=== PATIENT | female | born 1965 | race Caucasian/White ===

== ENCOUNTER 2018-04-26 14:30 | Emergency (ER) | payer OTHER ==
[2018-04-26] MEDS ORDERED: KETOROLAC 30 MG/ML INJ ONE (15:30)
[2018-04-26] MEDS ORDERED: NA CHLORIDE 0.9% 1,000 ML ONE (15:30)
[2018-04-26 15:47] LABS: Absolute Lymphocytes (CBC) 1.2 K/uL (0.7-4.9); Absolute Monocytes 0.6 K/uL (0.1-1.3); Absolute Neutrophil 6.9 K/uL (1.8-8.0); Basophils % 0.5 % (0-1.3); Hematocrit 41.6 % (36.0-45.0); Lymphocytes % 13.7 % (15.3-44.8); MCH 30.5 pg (27.0-35.0); MCV 87.8 fL (80-100); MPV 8.8 fL (7.6-11.3); Monocytes % 7.2 % (3.3-12.3); RBC Red Blood Cell Count 4.74 M/uL (3.86-4.86)
[2018-04-26 16:02] LABS: Albumin 3.9 g/dL (3.4-5.0); Bilirubin Direct 0.2 mg/dL (0-0.2); Bilirubin Total 0.5 mg/dL (0.2-1.0); Potassium 3.6 mmol/L (3.5-5.1); Protein, Total 7.6 g/dL (6.4-8.2)
[2018-04-26] MEDS ORDERED: PANTOPRAZOLE 40 MG INJ ONE (16:54)
--- NOTE | 2018-04-26 17:06 | ER ---
Nurse's Notes [facility] Name: Jessenia Kong Age: 52 yrs Sex: Female : 1965 Arrival Date: 04/26/2018 Time: 14:41 Bed 28 Private MD: None, None Diagnosis: Cholelithiasis Presentation: 04/26 14:45 Presenting complaint: Patient states: Lower abdominal pain for 2 days. Denies blood in aj stool. Transition of care: patient was not received from another setting of care. Onset of symptoms was April 24, 2018. Risk Assessment: Do you want to hurt yourself or someone else? Patient reports no desire to harm self or others. Initial Sepsis Screen: Does the patient meet any 2 criteria? No. Patient's initial sepsis screen is negative. Does the patient have a suspected source of infection? No. Patient's initial sepsis screen is negative. Care prior to arrival: None. 14:45 Method Of Arrival: Ambulatory 14:45 Acuity: MARYLU 3 aj Triage Assessment: 14:46 General: Appears in no apparent distress. comfortable, Behavior is calm, cooperative, aj appropriate for age. Pain: Complains of pain in right lower quadrant and left lower quadrant. Neuro: Level of Consciousness is awake, alert, obeys commands, Oriented to person, place, time, situation, Appropriate for age. Respiratory: Airway is patent Respiratory effort is even, unlabored, Respiratory pattern is regular, symmetrical. GI: Abdomen is flat, Reports upper abdominal pain. Derm: Skin is intact, is healthy with good turgor, Skin is pink, warm \T\ dry. normal. VENEER JOINER: 14:46 LMP N/A - Irregular menses aj Historical: - Allergies: 14:46 No Known Allergies; aj - Home Meds: 14:46 Low-Ogestrel (28) 0.3-30 mg-mcg Oral tab 1 tab once daily [Active]; aj - PMHx: 14:46 Fibroids; aj - PSHx: 14:46 None; aj - Immunization history:: Adult Immunizations up to date. - Social history:: Smoking status: Patient/guardian denies using tobacco. - Ebola Screening: : Patient negative for fever greater than or equal to 101.5 degrees Fahrenheit, and additional compatible Ebola Virus Disease symptoms Patient denies exposure to infectious person Patient denies travel to an Ebola-affected area in the 21 days before illness onset No symptoms or risks identified at this time. Screenin:32 Abuse screen: Denies threats or abuse. Denies injuries from another. Nutritional mg2 screening: No deficits noted. Tuberculosis screening: No symptoms or risk factors identified. Fall Risk IV access (20 points). Assessment: 15:29 General: Appears in no apparent distress. comfortable, Behavior is calm, cooperative. mg2 Pain: Complains of pain in abdomen and left lower quadrant and right lower quadrant Pain does not radiate. Pain currently is 5 out of 10 on a pain scale. Quality of pain is described as aching, Pain began gradually, 2 weeks ago Is intermittent. Neuro: Level of Consciousness is awake, alert, obeys commands, Oriented to person, place, time, situation. Cardiovascular: Capillary refill < 3 seconds Patient's skin is warm and dry. Respiratory: Airway is patent Respiratory effort is even, unlabored, Respiratory pattern is regular, symmetrical. GI: Bowel sounds present X 4 quads. Abd is soft and non tender. : No signs and/or symptoms were reported regarding the genitourinary system. EENT: No deficits noted. Derm: Skin is intact, is healthy with good turgor, Skin is pink, warm \T\ dry. normal. Musculoskeletal: No deficits noted. 16:06 Reassessment: Patient appears in no apparent distress at this time. Patient and/or mg2 family updated on plan of care and expected duration. Pain level reassessed. Patient is alert, oriented x 3, equal unlabored respirations, skin warm/dry/pink. 17:31 Reassessment: Patient appears in no apparent distress at this time. Patient and/or mg2 family updated on plan of care and expected duration. Pain level reassessed. Patient is alert, oriented x 3, equal unlabored respirations, skin warm/dry/pink. Vital Signs: 14:46 BP 160 / 74; Pulse 103; Resp 19; Temp 99.1; Pulse Ox 100% on R/A; Weight 63.5 kg; aj Height 5 ft. 5 in. (165.10 cm); 16:05 BP 156 / 86; Pulse 89; Resp 18; Pulse Ox 99% on R/A; mg2 17:30 BP 145 / 78; Pulse 88; Resp 18; Pulse Ox 100% on R/A; mg2 14:46 Body Mass Index 23.30 (63.50 kg, 165.10 cm) aj ED Course: 14:41 Patient arrived in ED. mr 14:41 None, None is Private Physician. mr 14:46 Triage completed. aj 14:46 Arm band placed on left wrist. Patient placed in waiting room, Patient notified of wait aj time. 15:05 [facility] Diaz [facility]-C [facility]. kb 15:05 Nj Alegria MD is Attending Physician. kb 15:09 Gilberto Munoz, DINH is Primary Nurse. mg2 15:31 No provider procedures requiring assistance completed. Inserted saline lock: 20 gauge mg2 in right antecubital area, using aseptic technique. Blood collected. 15:32 Patient has correct armband on for positive identification. Pulse ox on. NIBP on. Door mg2 closed. Warm blanket given. 16:59 US Abdomen Limited In Process Unspecified. EDMS 17:32 IV discontinued, intact, bleeding controlled, No redness/swelling at site. Pressure mg2 dressing applied. Administered Medications: 15:28 Drug: TORadol 30 mg Route: IVP; Site: right antecubital; mg2 17:29 Follow up: Response: No adverse reaction; Marked relief of symptoms mg2 15:29 Drug: NS 0.9% 1000 ml Route: IV; Rate: 1000 ml; Site: right antecubital; mg2 17:30 Follow up: Response: No adverse reaction; IV Status: Completed infusion mg2 16:49 Drug: ProTONIX 40 mg Route: IVP; Site: right antecubital; mg2 17:29 Follow up: Response: No adverse reaction; Marked relief of symptoms mg2 Outcome: 17:06 Discharge ordered by . kb 17:31 Discharged to home ambulatory, with family. mg2 17:31 Condition: stable 17:31 Discharge instructions given to patient, family, Instructed on discharge instructions, follow up and referral plans. medication usage, Demonstrated understanding of instructions, follow-up care, medications, Prescriptions given X 3. 17:32 Patient left the ED. mg2 Signatures: Dispatcher [employer] EDMS Jessenia Diaz FNP-C FNP-Ckb Myers, Amanda, RN Elizabeth Diehl mr Gilberto Munoz, DINH TAO mg2
--- NOTE | 2018-04-26 17:07 | EDPHYS ---
Physician Documentation [facility] Name: Jessenia Kong Age: 52 yrs Sex: Female : 1965 Arrival Date: 04/26/2018 Time: 14:41 Bed 28 Private MD: None, None ED Physician Nj Alegria HPI: 04/26 15:36 This 52 yrs old Female presents to ER via Ambulatory with complaints of kb Abdominal Pain. 15:36 The patient presents with abdominal pain in the lower abdomen. Onset: The kb symptoms/episode began/occurred 2 week(s) ago, and became persistent 3 days ago. The symptoms do not radiate. Associated signs and symptoms: Pertinent positives: fever, nausea, Pertinent negatives: anorexia, blood in stools, chest pain, constipation, diarrhea, dysuria, headache, hematuria, palpitations, shortness of breath, vaginal discharge, vomiting, vomiting blood. The symptoms are described as intermittent. Modifying factors: The symptoms are alleviated by nothing, the symptoms are aggravated by food. Severity of pain: At its worst the pain was moderate in the emergency department the pain is unchanged. The patient has not experienced similar symptoms in the past. The patient has not recently seen a physician. MILK RUNNER: 14:46 LMP N/A - Irregular menses aj Historical: - Allergies: 14:46 No Known Allergies; aj - Home Meds: 14:46 Low-Ogestrel (28) 0.3-30 mg-mcg Oral tab 1 tab once daily [Active]; aj - PMHx: 14:46 Fibroids; aj - PSHx: 14:46 None; aj - Immunization history:: Adult Immunizations up to date. - Social history:: Smoking status: Patient/guardian denies using tobacco. - Ebola Screening: : Patient negative for fever greater than or equal to 101.5 degrees Fahrenheit, and additional compatible Ebola Virus Disease symptoms Patient denies exposure to infectious person Patient denies travel to an Ebola-affected area in the 21 days before illness onset No symptoms or risks identified at this time. ROS: 15:35 Constitutional: Negative for fever, chills, and weight loss, Cardiovascular: Negative kb for chest pain, palpitations, and edema, Respiratory: Negative for shortness of breath, cough, wheezing, and pleuritic chest pain, Back: Negative for injury and pain, : Negative for injury, bleeding, discharge, and swelling, MS/Extremity: Negative for injury and deformity, Skin: Negative for injury, rash, and discoloration, Neuro: Negative for headache, weakness, numbness, tingling, and seizure. 15:35 Abdomen/GI: Positive for abdominal pain, nausea, Negative for vomiting, diarrhea, constipation, abdominal cramps, abdominal distension, anorexia. Exam: 15:35 Constitutional: This is a well developed, well nourished patient who is awake, alert, kb and in no acute distress. Head/Face: Normocephalic, atraumatic. Chest/axilla: Normal chest wall appearance and motion. Nontender with no deformity. No lesions are appreciated. Cardiovascular: Regular rate and rhythm with a normal S1 and S2. No gallops, murmurs, or rubs. Normal PMI, no JVD. No pulse deficits. Respiratory: Lungs have equal breath sounds bilaterally, clear to auscultation and percussion. No rales, rhonchi or wheezes noted. No increased work of breathing, no retractions or nasal flaring. Back: No spinal tenderness. No costovertebral tenderness. Full range of motion. Skin: Warm, dry with normal turgor. Normal color with no rashes, no lesions, and no evidence of cellulitis. MS/ Extremity: Pulses equal, no cyanosis. Neurovascular intact. Full, normal range of motion. Neuro: Awake and alert, GCS 15, oriented to person, place, time, and situation. Cranial nerves II-XII grossly intact. Motor strength 5/5 in all extremities. Sensory grossly intact. Cerebellar exam normal. Normal gait. 15:35 Abdomen/GI: Inspection: abdomen appears normal, Bowel sounds: normal, in all quadrants, Palpation: soft, in all quadrants, nontender, in the left upper quadrant, right lower quadrant and left lower quadrant, moderate abdominal tenderness, in the right upper quadrant. Vital Signs: 14:46 BP 160 / 74; Pulse 103; Resp 19; Temp 99.1; Pulse Ox 100% on R/A; Weight 63.5 kg; aj Height 5 ft. 5 in. (165.10 cm); 16:05 BP 156 / 86; Pulse 89; Resp 18; Pulse Ox 99% on R/A; mg2 17:30 BP 145 / 78; Pulse 88; Resp 18; Pulse Ox 100% on R/A; mg2 14:46 Body Mass Index 23.30 (63.50 kg, 165.10 cm) aj MDM: 15:05 Patient medically screened. kb 15:36 Data reviewed: vital signs, nurses notes. Data interpreted: Pulse oximetry: on room air kb is 100 %. Interpretation: normal. 16:43 Counseling: I had a detailed discussion with the patient and/or guardian regarding: the kb historical points, exam findings, and any diagnostic results supporting the discharge/admit diagnosis, lab results, radiology results, the need for outpatient follow up, a family practitioner, a general surgeon, to return to the emergency department if symptoms worsen or persist or if there are any questions or concerns that arise at home. 04/26 15:18 Order name: Basic Metabolic Panel; Complete Time: 16:03 kb 04/26 15:18 Order name: CBC with Diff; Complete Time: 16:03 kb 04/26 15:18 Order name: Hepatic Function; Complete Time: 16:03 kb 04/26 15:18 Order name: Lipase; Complete Time: 16:03 kb 04/26 15:39 Order name: Urine Dipstick--Ancillary (enter results) eb 04/26 15:39 Order name: Urine --Ancillary (enter results) eb 04/26 15:18 Order name: IV Saline Lock; Complete Time: 15:29 kb 04/26 15:18 Order name: Labs collected and sent; Complete Time: 15:29 kb 04/26 15:18 Order name: US Abdomen Limited; Complete Time: 18:55 kb 04/26 15:18 Order name: Urine Dipstick-Ancillary (obtain specimen); Complete Time: 15:29 kb Administered Medications: 15:28 Drug: TORadol 30 mg Route: IVP; Site: right antecubital; mg2 17:29 Follow up: Response: No adverse reaction; Marked relief of symptoms mg2 15:29 Drug: NS 0.9% 1000 ml Route: IV; Rate: 1000 ml; Site: right antecubital; mg2 17:30 Follow up: Response: No adverse reaction; IV Status: Completed infusion mg2 16:49 Drug: ProTONIX 40 mg Route: IVP; Site: right antecubital; mg2 17:29 Follow up: Response: No adverse reaction; Marked relief of symptoms mg2 Disposition: 17:49 Co-signature as Attending Physician, Nj Alegria MD. Disposition: 04/26/18 17:06 Discharged to Home. Impression: Cholelithiasis. - Condition is Stable. - Discharge Instructions: Cholelithiasis, [id number]. - Prescriptions for Bentyl 20 mg Oral Tablet - take 1 tablet by ORAL route every 6 hours As needed; 20 tablet. Zofran 4 mg Oral Tablet - take 1 tablet by ORAL route every 6 hours As needed; 20 tablet. Diclofenac Sodium 75 mg Oral Tablet, Delayed Release (E.C.) - take 1 tablet by ORAL route 2 times per day As needed; 30 tablet. - Medication Reconciliation Form, Thank You Letter, Antibiotic Education, Prescription Opioid Use form. - Follow up: Emergency Department; When: As needed; Reason: Worsening of condition. Follow up: Private Physician; When: 2 - 3 days; Reason: Recheck today's complaints, Continuance of care, Re-evaluation by your physician. Signatures: Dispatcher [employer] EDMI Jessenia Diaz, REAL ESTATE PORTFOLIO MANAGER-C REAL ESTATE PORTFOLIO MANAGER-Jerica Carrion RN RN Nj Macdonald MD MD Gilberto Munoz RN RN mg2 Corrections: (The following items were deleted from the chart) 17:32 17:06 04/26/2018 17:06 Discharged to Home. Impression: Cholelithiasis. Condition is mg2 Stable. Forms are Medication Reconciliation Form, Thank You Letter, Antibiotic Education, Prescription Opioid Use. Follow up: Emergency Department; When: As needed; Reason: Worsening of condition. Follow up: Private Physician; When: 2 - 3 days; Reason: Recheck today's complaints, Continuance of care, Re-evaluation by your physician. kb
--- NOTE | 2018-04-26 17:18 | RAD REPORT ---
EXAM DESCRIPTION: US - Abdomen Exam Limited - 04/26/2018 4:59 pm CLINICAL HISTORY: Abdominal pain. COMPARISON: None. FINDINGS: 21 millimeter stone appears lodged within the gallbladder neck. Additional small gallstone s are seen with a small amount of sludge. Gallbladder is mildly dilated. The gallbladder wall measure s 6 millimeters Common bile duct measures 8 millimeters. . IMPRESSION: Cholelithiasis. Thickened gallbladder wall probably indicates cholecystitis Mild dilatation of the common bile duct may indicate a stone within the duct
[2018-04-26 20:23] LABS: Urine Blood 1+ (NEG); Urine Glucose NEGATIVE (NEG); Urine Protein NEGATIVE (NEG)
== END 2018-04-26 17:32 | disposition home or self-care (01) ==
LOC: ER 14:30
DX: K80.20 Calculus of gallbladder without cholecystitis without obstruction (principal)
CPT/HCPCS: 36415; 76705; 80048; 80076; 81003; 81025; 83690; 85025; 96361; 96374; 96375; 99284; C9113; J7030

== ENCOUNTER 2018-05-29 08:24 | Day surgery (SDC) | payer OTHER ==
[2018-05-29] MEDS ORDERED: CEFOXITIN/SWI 1gm 1 GM/10 ML SYR ONE (08:42)
[2018-05-29] MEDS ORDERED: Ringers Lactate 1,000 ML IV ONE ×2 (08:42→12:24)
[2018-05-29 08:55] LABS: Specific Gravity 1.015 (1.005-1.030)
[2018-05-29] MEDS ORDERED: BUPIVACA 0.25%/EPI 0.0005% MDV 50 ML VIAL ONE (09:37)
[2018-05-29] MEDS ORDERED: MIDAZOLAM HCL 2 MG/2 ML INJ ONE (09:42)
[2018-05-29] MEDS ORDERED: FENTANYL CITR 100 MCG/2 ML ONE ×3 (09:42→11:17)
[2018-05-29] MEDS ORDERED: LIDOCAINE 1% MPF 5 ML VIAL ONE (09:42)
[2018-05-29] MEDS ORDERED: PROPOFOL 200 MG/20 ML VIAL IV ONE (09:42)
[2018-05-29] MEDS ORDERED: ROCURONIUM 50 MG/5 ML VIAL IV ONE (09:43)
[2018-05-29] MEDS ORDERED: ONDANSETRON HCL 40 MG/20 ML VIAL ONE (11:45)
[2018-05-29] MEDS ORDERED: NEOSTIGMINE 1 MG/ML -5 ML SYRINGE ONE (11:45)
[2018-05-29] MEDS ORDERED: KETOROLAC 30 MG/ML INJ ONE (11:45)
[2018-05-29] MEDS ORDERED: GLYCOPYRROLATE 0.2 MG/ML SYR ONE (11:45)
--- NOTE | 2018-05-29 12:10 | P.OP ---
Preoperative diagnosis: Symptomatic Cholelithiasis Postoperative diagnosis: Symptomatic Cholelithiasis Primary procedure: Laparoscoic Cholecystectomy Anesthesia: GETA + Local Estimated blood loss: <10cc Specimen: Gallbladder Findings: Gross inflammation to gallbladder, hydrops, impacted stone Complications: None Transferred to: Recovery Room Condition: Good
[2018-05-29] MEDS ORDERED: HYDROCODONE/APAP 5/325 MG TAB ONE (13:25)
--- NOTE | 2018-05-29 23:27 | OP ---
Date of Procedure: 05/29/2018 Surgeon: David Ibarra MD, Preoperative Diagnosis: Symptomatic cholelithiasis. Postoperative Diagnosis: Symptomatic cholelithiasis. Procedure Performed: Laparoscopic cholecystectomy. Anesthesia: General endotracheal plus local with 0.25% Marcaine. Estimated Blood Loss: 10 cc. Specimen: Gallbladder. Findings: 1.Gross inflammation of the gallbladder. 2.Hydrops. 3.Impacted stone in the neck of the gallbladder. Complications: None. Disposition: Transferred to recovery room in good condition. Procedure In Detail: After informed consent was obtained, the patient was brought to the operating r oom, prepped and draped in the usual sterile fashion. After adequate anesthesia was achieved, suprau mbilical area was anesthetized with 0.25% Marcaine, sharply incised and a 5-mm trocar was introduced in the abdomen without evidence of complication. Insufflation was obtained to 15 mmHg at this time. The area was inspected and there was no injury to vital structures upon entry the abdomen. Addition al trocar site was chosen in the epigastric region. This was similarly anesthetized and sharply inci sed, and 5-mm trocar was introduced in the abdomen without evidence of complication. Additional troc ar site was chosen in the right upper quadrant. This was similarly anesthetized and sharply incised and a 5-mm trocar was introduced in the abdomen without evidence of complication. The umbilical troc ar was then up-sized to a 12-mm under direct visualization without evidence of complication. The are a was inspected and the gallbladder was found to be completely encased in omental attachments. There were firm adhesions to the anterior surface, which required a careful dissection using both electroc autery and blunt dissection. The gallbladder was completely full and difficult to grasp and as such, a decompression needle was brought onto the field and decompressed the gallbladder, was found to be consistent with hydrops of gallbladder. After this was decompressed partially, a large impacted ston e was found in the neck of the gallbladder and therefore causing significant inflammatory changes to the anterior surface of the gallbladder, which was thickened at the right and difficult to grasp even after decompression. Dissection continued down to expose the triangle of Calot. Both the cystic checo t and cystic artery were identified and a critical view of safety was obtained at this time skeletoni zing all structures and seeing only 2 structures entering the gallbladder. These were both doubly cl ipped on the proximal side and singly on the distal side, and Endo Evans were then used to ligate th e above structures. The gallbladder was then removed from the hepatic fossa and placed in EndoCatch bag, removed through the umbilical trocar. Dilatation of the umbilical site was required as this sto ne was quite large and difficult to pass through a standard trocar as such. The umbilical trocar sit e had to be enlarged. After re-insufflation was obtained at this time, the area was inspected for pr oper hemostasis and electrocautery was required to fulgurate the bed of the gallbladder as there was oozing from the gallbladder bed. This required several rounds of fulguration before hemostasis was a chieved. The abdomen was then copiously irrigated multiple times until completely dry and there was no additional bleeding. The umbilical trocar site was then closed with a Cody-Christopher suture pass er with poor fascial closure and as such, I used the Cody-Christopher suture passer to grasp and eleva te the fascia and the fascia was closed using a running 0 Vicryl suture under direct visualization wi th good approximation of the tissues. The abdomen was then re-insufflated at this time completely an d the area was inspected one last time. The patient was positioned in neutral position. Irrigation and suction were performed one last time and the hepatic bed was inspected for hemostasis which was a chieved at this time. The liver did have a somewhat nodular appearance and additionally I have negle cted to mention that the gallbladder was partially intrahepatic, particularly at the distal aspect of the gallbladder. The trocars then were all removed under direct visualization without evidence of c omplication. All skin incisions were copiously irrigated and closed with 4-0 Monocryl in a running f ashion. Dermabond placed over the top. The patient tolerated the procedure well without evidence of complication and transferred to PACU in good condition. All counts were correct at the end of the case. LINNEA/REY Voice ID: [id number] Report ID: [id number]
== END 2018-05-29 14:21 | disposition home or self-care (01) ==
LOC: OR 08:24
PROVIDERS: ATTEND Surgery
PROC: 0FT44ZZ Resection of Gallbladder, Percutaneous Endoscopic Approach (ICD-10-PCS; principal; 2018-05-29 10:00)
DX: K80.10 Calculus of gallbladder with chronic cholecystitis without obstruction (principal); J45.909 Unspecified asthma, uncomplicated
CPT/HCPCS: 81025; 88304; J2250; J2405; J2704; J2710; J3010